=== PATIENT | female | born 1970 | race Caucasian/White ===

== ENCOUNTER → 2017-07-30 | Outpatient (CLI) | payer BC ==
[~2017-07-30] MED LIST: AMOX-291 PO; ETON1VAG INTUTE; LISI-170 PO; MV-M1TAB25 PO; ROSU20TA PO; TRAM50TA2 PO
[2017-07-30 11:10] LABS: BASOPHILS # (AUTO) 0.03 x10^3/uL (0-0.1); BASOPHILS % (AUTO) 0 % (0-1); EOSINOPHILS % (AUTO) 0 % (1-7); LYMPHOCYTES # (AUTO) 1.47 x10^3/uL (1-3.4); LYMPHOCYTES % (AUTO) 20 % (22-44); MD NO; MEAN CORPUSCULAR HEMOGLOBIN 31.3 pg (27.0-34.8); MEAN CORPUSCULAR HGB CONC 34.1 g/dL (32.4-35.8); MEAN CORPUSCULAR VOLUME 91.7 fL (80-100); MEAN PLATELET VOLUME 9.5 fL (7.4-10.4); MONOCYTES # (AUTO) 0.34 x10^3/uL (0.2-0.8); MONOCYTES % (AUTO) 5 % (2-9); NEUTROPHILS # (AUTO) 5.56 x10^3/uL (1.8-6.8); NEUTROPHILS % (AUTO) 75 % (42-75); PLATELET COUNT 255 x10^3/uL (130-400); RED BLOOD COUNT 4.78 x10^6/uL (3.82-5.3); RED CELL DISTRIBUTION WIDTH 12.4 % (9.6-15.2)
[2017-07-30 11:12] LABS: MICROSCOPIC NOT IND
[2017-07-30 11:14] LABS: INTERNATIONAL NORMALIZED RATIO 0.91 (0.93-1.1); PROTHROMBIN TIME 9.4 Seconds (9.6-11.5)
[2017-07-30 11:15] LABS: HCT (SEDRATE) 43.8 % (34.6-47.8)
[2017-07-30 11:19] LABS: ALBUMIN 3.4 g/dL (3.4-5.0); ANION GAP 6 mmol/L (5-15); CALCIUM 8.5 mg/dL (8.5-10.1); CHLORIDE 107 mmol/L (98-107)
[2017-07-30 11:22] LABS: ALANINE AMINOTRANSFERASE 21 U/L (12-78); ALKALINE PHOSPHATASE 61 U/L (45-117); BILIRUBIN,TOTAL 0.4 mg/dL (0.2-1.0); CREATININE 0.78 mg/dL (0.55-1.02); TOTAL PROTEIN 7.4 g/dL (6.4-8.2)
== END | disposition home or self-care (01) ==
LOC: STAR 09:59
PROVIDERS: ATTEND Orthopaedic Surgery Orthopaedic Surgery of the Spine
DX: Z01.818 Encounter for other preprocedural examination (principal); M25.552 Pain in left hip
CPT/HCPCS: 36415; 71046; 80053; 81003; 85025; 85610; 85651; 85730; 93005

== ENCOUNTER 2017-08-20 06:08 | Inpatient (IN) | payer BC ==
[~2017-08-20] VITALS: Ht 160 cm; Wt 72.7 kg
[2017-08-20] MEDS ORDERED: BUPIVACAINE/PF 0.5% ONE ×2 (06:44→11:11)
[2017-08-20] MEDS ORDERED: TRANEXAMIC ACID 100 MG/ML, 10ML ONE (06:44)
[2017-08-20] MEDS ORDERED: THROMBIN 20,000 UNIT VIAL TP ONE ×3 (06:45→09:20)
[2017-08-20] MEDS ORDERED: VANCOMYCIN PER PHARMACY MC ONE (06:45)
[2017-08-20] MEDS ORDERED: VANCOMYCIN 1,000 MG ONE (06:45)
[2017-08-20] MEDS ORDERED: EPINEPHRINE 1 MG/ML, 1ML ONE (06:45)
[2017-08-20] MEDS ORDERED: LACTATED RINGERS 1,000 ML IV SCH (06:53)
[2017-08-20] MEDS ORDERED: VANCOMYCIN PMX 1GM/200ML 200 ML IV ONE (07:00)
[2017-08-20 07:27] LABS: HCG UR SG 1.026 (1.003-1.030)
[2017-08-20] MEDS ORDERED: CEFAZOLIN PMX 1GM/50ML 0 ML ONE (07:32)
[2017-08-20] MEDS ORDERED: FENTANYL PF 250 MCG/5ML ONE ×2 (07:36)
[2017-08-20] MEDS ORDERED: MIDAZOLAM 1 MG/ML, 2ML ONE ×2 (07:36)
[2017-08-20] MEDS ORDERED: SCOPOLAMINE PATCH, 1.5MG PATCH.TD72 TD ONE ×2 (07:40→08:00)
[2017-08-20] MEDS ORDERED: DEXAMETHASONE 4 MG/ML, 1ML ONE (07:43)
[2017-08-20] MEDS ORDERED: CEFAZOLIN 1,000 MG ONE ×2 (07:43→07:54)
[2017-08-20] MEDS ORDERED: ROCURONIUM 10 MG/ML,10ML ONE (07:43)
[2017-08-20] MEDS ORDERED: PROPOFOL 10 MG/ML, 20ML ONE (07:43)
[2017-08-20] MEDS ORDERED: PHENYLEPHRINE 10 MG/ML ONE (07:54)
[2017-08-20] MEDS ORDERED: NEOSTIGMINE 1 MG/ML, 10ML ONE (07:54)
[2017-08-20] MEDS ORDERED: ONDANSETRON 2MG/ML, 2ML ONE (07:54)
[2017-08-20] MEDS ORDERED: GLYCOPYRROLATE 0.2MG/1ML, 5ML ONE (07:54)
[2017-08-20] MEDS ORDERED: CEFAZOLIN PMX 1GM/50ML 50 ML IV ONE (08:00)
[2017-08-20] MEDS ORDERED: HYDROmorphone 2 MG/ML, 1ML ONE ×2 (08:06→13:02)
[2017-08-20] MEDS ORDERED: PROMETHAZINE 25 MG/ML, 1ML IV PRN (08:30)
[2017-08-20] MEDS ORDERED: ALBUTEROL SULFATE 2.5 MG/3 ML NPPB PRN (08:30)
[2017-08-20] MEDS ORDERED: OXYcodone 5 MG/5 ML ORAL.SOL UDC PO PRN (08:30)
[2017-08-20] MEDS ORDERED: MEPERIDINE/PF 25MG/0.5ML IVPush PRN (08:30)
[2017-08-20] MEDS ORDERED: DIAZEPAM 5 MG/ML, 2ML IVPush PRN (08:30)
[2017-08-20] MEDS ORDERED: hydrALAzine 20 MG/ML, 1ML IV PRN (08:30)
[2017-08-20] MEDS ORDERED: EPHEDRINE 50 MG/ML, 1ML IVPush PRN (08:30)
[2017-08-20] MEDS ORDERED: ONDANSETRON 2MG/ML, 2ML IVPush PRN ×2 (08:30→14:00)
[2017-08-20] MEDS ORDERED: ACETAMINOPHEN 325 MG TABLET PO PRN (08:30)
[2017-08-20] MEDS ORDERED: LABETALOL 5MG/ML, 20ML IV PRN (08:30)
[2017-08-20] MEDS ORDERED: METOPROLOL 1 MG/ML, 5ML IV PRN (08:30)
[2017-08-20] MEDS ORDERED: VANCOMYCIN 1,000 MG IM ONE (11:42)
[2017-08-20 12:28] LABS: MEAN CORPUSCULAR HEMOGLOBIN 32.2 pg (27.0-34.8); MEAN CORPUSCULAR HGB CONC 34.2 g/dL (32.4-35.8); MEAN CORPUSCULAR VOLUME 94.2 fL (80-100); MEAN PLATELET VOLUME 8.9 fL (7.4-10.4); PLATELET COUNT 165 x10^3/uL (130-400); RED BLOOD COUNT 4.08 x10^6/uL (3.82-5.3); RED CELL DISTRIBUTION WIDTH 13.5 % (9.6-15.2)
[2017-08-20] MEDS ORDERED: FENTANYL PF 100 MCG/2ML ONE (12:34)
[2017-08-20] MEDS ORDERED: ACETAMINOPHEN 650 MG/20.3 ML UDC ONE (12:34)
[2017-08-20] MEDS ORDERED: OXYcodone 5 MG/5 ML ORAL.SOL UDC ONE (12:35)
[2017-08-20] MEDS: FENTANYL PF 100 MCG/2ML IV PRN ×2 (12:41→12:53)
[2017-08-20] MEDS: HYDROmorphone 1 MG/ML, 1ML IV PRN ×3 (13:04→13:16)
[2017-08-20 13:24] LABS: BASOPHILS % (AUTO) 0 % (0-1); EOSINOPHILS % (AUTO) 0 % (1-7); LYMPHOCYTES % (AUTO) 4 % (22-44); MD SCAN; MONOCYTES # (AUTO) 0.26 x10^3/uL (0.2-0.8); MONOCYTES % (AUTO) 1 % (2-9); NEUTROPHILS # (AUTO) 18.87 x10^3/uL (1.8-6.8); NEUTROPHILS % (AUTO) 95 % (42-75)
[2017-08-20 13:45] VITALS: BP 118/87
[2017-08-20] MEDS ORDERED: LORazepam 2 MG/ML, 1ML IV PRN (14:00)
[2017-08-20] MEDS ORDERED: DIPHENHYDRAMINE 25 MG CAPSULE PO PRN (14:00)
[2017-08-20] MEDS: LABETALOL 5MG/ML, 20ML IVPush SCH ×2 (14:00→22:00)
[2017-08-20] MEDS ORDERED: ALUMINUM/MAG/SIMETHICONE 30 ML UDC PO PRN (14:00)
[2017-08-20] MEDS ORDERED: ACETAMINOPHEN 500 MG TABLET PO PRN (14:00)
[2017-08-20] MEDS ORDERED: LORazepam 1MG TABLET PO PRN (14:00)
[2017-08-20] MEDS: SCOPOLAMINE PATCH, 1.5MG PATCH.TD72 TD SCH (14:00)
[2017-08-20] MEDS ORDERED: PROMETHAZINE 25 MG/ML, 1ML IM PRN (14:00)
[2017-08-20] MEDS ORDERED: ZOLPIDEM 5MG TABLET PO PRN (14:00)
[2017-08-20] MEDS ORDERED: BISACODYL 10 MG SUPP PR PRN (14:00)
[2017-08-20] MEDS ORDERED: PROMETHAZINE 25 MG SUPP PR PRN (14:00)
[2017-08-20] MEDS ORDERED: SODIUM CHLORIDE 0.9% 1,000 ML IV PRN (14:30)
[2017-08-20] MEDS: morphine SULFATE 10 MG/ML, 1ML IV PRN ×2 (15:25→21:58)
[2017-08-20] MEDS: POTASSIUM CHLORIDE 20 MEQ in D5%-0.45% NACL 1,000 ML IV SCH ×2 (16:50→21:28)
[2017-08-20] MEDS: CEFAZOLIN PMX 1GM/50ML 50 ML IVPB SCH ×2 (16:51→23:52)
[2017-08-20] MEDS: OXYcodone IR 5MG TABLET PO PRN (16:55)
[2017-08-20] MEDS: ONDANSETRON ODT 4 MG PO PRN (18:48)
[2017-08-20] MEDS: DIAZEPAM 5 MG TABLET PO PRN (18:49)
[2017-08-20 18:52] VITALS: BP 125/83
[2017-08-20] MEDS: ASPIRIN 325 MG TABLET EC PO SCH (20:00)
[2017-08-20] MEDS: DOCUSATE 100 MG CAPSULE PO SCH (21:00)
[2017-08-20] MEDS: SODIUM CHLORIDE FLUSH 10ML SYR IVF SCH (21:00)
[2017-08-20] MEDS ORDERED: TEMPLATE NON-FORMULARY MED. (CRESTOR 20 MG) PO SCH (21:00)
[2017-08-20 23:54] VITALS: BP 136/65
[2017-08-21] MEDS: OXYcodone IR 5MG TABLET PO PRN ×6 (00:46→21:31)
[2017-08-21 04:53] VITALS: BP 135/83
[2017-08-21] MEDS: LABETALOL 5MG/ML, 20ML IVPush SCH ×2 (06:00→14:00)
[2017-08-21] MEDS: DOCUSATE 100 MG CAPSULE PO SCH ×2 (07:56→20:54)
[2017-08-21] MEDS: ASPIRIN 325 MG TABLET EC PO SCH ×2 (07:56→20:54)
[2017-08-21] MEDS: SODIUM CHLORIDE FLUSH 10ML SYR IVF SCH ×2 (07:57→21:04)
[2017-08-21] MEDS: LISINOPRIL 20 MG TABLET PO SCH (07:57)
[2017-08-21] MEDS: KETOROLAC 30 MG/1 ML IV PRN (07:57)
[2017-08-21 08:34] VITALS: BP 141/84
[2017-08-21 09:16] LABS: BASOPHILS # (AUTO) 0.04 x10^3/uL (0-0.1); BASOPHILS % (AUTO) 0 % (0-1); EOSINOPHILS % (AUTO) 0 % (1-7); LYMPHOCYTES # (AUTO) 1.58 x10^3/uL (1-3.4); LYMPHOCYTES % (AUTO) 12 % (22-44); MD NO; MEAN CORPUSCULAR HEMOGLOBIN 31.8 pg (27.0-34.8); MEAN CORPUSCULAR HGB CONC 34.2 g/dL (32.4-35.8); MEAN CORPUSCULAR VOLUME 92.9 fL (80-100); MEAN PLATELET VOLUME 9.1 fL (7.4-10.4); MONOCYTES # (AUTO) 1.51 x10^3/uL (0.2-0.8); MONOCYTES % (AUTO) 11 % (2-9); NEUTROPHILS # (AUTO) 10.22 x10^3/uL (1.8-6.8); NEUTROPHILS % (AUTO) 77 % (42-75); PLATELET COUNT 123 x10^3/uL (130-400); RED BLOOD COUNT 3.45 x10^6/uL (3.82-5.3); RED CELL DISTRIBUTION WIDTH 13.7 % (9.6-15.2)
[2017-08-21] MEDS: POTASSIUM CHLORIDE 20 MEQ in D5%-0.45% NACL 1,000 ML IV SCH ×2 (10:12→20:18)
[2017-08-21 13:00] VITALS: BP 114/65
[2017-08-21] MEDS ORDERED: LABETALOL 5MG/ML, 20ML IVPush PRN (15:30)
[2017-08-21 19:49] VITALS: BP 104/63
[2017-08-22 00:03] VITALS: BP 154/84
[2017-08-22] MEDS: OXYcodone IR 5MG TABLET PO PRN ×6 (00:36→20:50)
[2017-08-22] MEDS: POTASSIUM CHLORIDE 20 MEQ in D5%-0.45% NACL 1,000 ML IV SCH ×2 (06:24→15:11)
[2017-08-22 07:40] VITALS: BP 117/75
[2017-08-22] MEDS: ASPIRIN 325 MG TABLET EC PO SCH ×2 (08:01→20:51)
[2017-08-22] MEDS: DOCUSATE 100 MG CAPSULE PO SCH ×2 (08:01→20:51)
[2017-08-22] MEDS: SODIUM CHLORIDE FLUSH 10ML SYR IVF SCH ×2 (08:02→20:52)
[2017-08-22] MEDS: LISINOPRIL 20 MG TABLET PO SCH (08:02)
[2017-08-22 09:31] LABS: BASOPHILS # (AUTO) 0.04 x10^3/uL (0-0.1); BASOPHILS % (AUTO) 0 % (0-1); EOSINOPHILS % (AUTO) 0 % (1-7); LYMPHOCYTES # (AUTO) 2.34 x10^3/uL (1-3.4); LYMPHOCYTES % (AUTO) 18 % (22-44); MD NO; MEAN CORPUSCULAR HEMOGLOBIN 31.8 pg (27.0-34.8); MEAN CORPUSCULAR HGB CONC 34.6 g/dL (32.4-35.8); MEAN CORPUSCULAR VOLUME 91.9 fL (80-100); MEAN PLATELET VOLUME 9.7 fL (7.4-10.4); MONOCYTES # (AUTO) 1.44 x10^3/uL (0.2-0.8); MONOCYTES % (AUTO) 11 % (2-9); NEUTROPHILS # (AUTO) 9.42 x10^3/uL (1.8-6.8); NEUTROPHILS % (AUTO) 71 % (42-75); PLATELET COUNT 129 x10^3/uL (130-400); RED BLOOD COUNT 3.04 x10^6/uL (3.82-5.3); RED CELL DISTRIBUTION WIDTH 13.8 % (9.6-15.2)
[2017-08-22] MEDS: SENNA/DOCUSATE TABLET PO PRN (12:08)
[2017-08-22 13:08] VITALS: BP 93/60
[2017-08-22 19:25] VITALS: BP 97/61
[2017-08-22] MEDS: CRESTOR 20 MG HOMEMEDPO SCH (20:52)
[2017-08-22] MEDS: KETOROLAC 30 MG/1 ML IV PRN (22:36)
[2017-08-23] MEDS: OXYcodone IR 5MG TABLET PO PRN ×7 (00:48→23:49)
[2017-08-23 01:57] VITALS: BP 110/61
[2017-08-23] MEDS: POTASSIUM CHLORIDE 20 MEQ in D5%-0.45% NACL 1,000 ML IV SCH ×3 (02:36→22:48)
[2017-08-23] MEDS: KETOROLAC 30 MG/1 ML IV PRN (06:50)
[2017-08-23 07:16] VITALS: BP 101/65
[2017-08-23 08:57] LABS: BASOPHILS # (AUTO) 0.04 x10^3/uL (0-0.1); BASOPHILS % (AUTO) 0 % (0-1); EOSINOPHILS # (AUTO) 0.01 x10^3/uL (0-0.4); EOSINOPHILS % (AUTO) 0 % (1-7); LYMPHOCYTES % (AUTO) 15 % (22-44); MD NO; MEAN CORPUSCULAR HEMOGLOBIN 32.1 pg (27.0-34.8); MEAN CORPUSCULAR HGB CONC 34.4 g/dL (32.4-35.8); MEAN CORPUSCULAR VOLUME 93.2 fL (80-100); MEAN PLATELET VOLUME 9.2 fL (7.4-10.4); MONOCYTES # (AUTO) 1.07 x10^3/uL (0.2-0.8); MONOCYTES % (AUTO) 9 % (2-9); NEUTROPHILS # (AUTO) 8.47 x10^3/uL (1.8-6.8); NEUTROPHILS % (AUTO) 75 % (42-75); PLATELET COUNT 128 x10^3/uL (130-400); RED BLOOD COUNT 2.79 x10^6/uL (3.82-5.3)
[2017-08-23] MEDS: DOCUSATE 100 MG CAPSULE PO SCH ×2 (09:09→20:02)
[2017-08-23] MEDS: ASPIRIN 325 MG TABLET EC PO SCH ×2 (09:09→20:02)
[2017-08-23] MEDS: SODIUM CHLORIDE FLUSH 10ML SYR IVF SCH ×2 (09:09→20:02)
[2017-08-23] MEDS: ONDANSETRON ODT 4 MG PO PRN (10:28)
[2017-08-23] MEDS: MAGNESIUM HYDROXIDE 8%, 30ML UDC PO PRN (11:46)
[2017-08-23 12:25] VITALS: BP 109/69
[2017-08-23] MEDS: SENNA/DOCUSATE TABLET PO PRN (13:41)
[2017-08-23] MEDS: SCOPOLAMINE PATCH, 1.5MG PATCH.TD72 TD SCH (14:00)
[2017-08-23] MEDS: DEXAMETHASONE 6 MG in SODIUM CHLORIDE 0.9% 50 ML IV PRN (14:50)
[2017-08-23 19:40] VITALS: BP 131/72
[2017-08-23] MEDS: LISINOPRIL 20 MG TABLET PO SCH (20:02)
[2017-08-23] MEDS: CRESTOR 20 MG HOMEMEDPO SCH (20:02)
[2017-08-24 02:04] VITALS: BP 96/62
[2017-08-24] MEDS: OXYcodone IR 5MG TABLET PO PRN ×5 (04:06→23:48)
[2017-08-24 07:03] VITALS: BP 109/71
[2017-08-24] MEDS: DOCUSATE 100 MG CAPSULE PO SCH ×2 (08:31→20:54)
[2017-08-24] MEDS: ASPIRIN 325 MG TABLET EC PO SCH ×2 (08:31→19:35)
[2017-08-24] MEDS: POTASSIUM CHLORIDE 20 MEQ in D5%-0.45% NACL 1,000 ML IV SCH ×2 (08:54→18:58)
[2017-08-24] MEDS: SODIUM CHLORIDE FLUSH 10ML SYR IVF SCH ×2 (09:10→23:48)
[2017-08-24] MEDS: DEXAMETHASONE 6 MG in SODIUM CHLORIDE 0.9% 50 ML IV PRN (09:37)
[2017-08-24 10:41] LABS: BASOPHILS # (AUTO) 0.03 x10^3/uL (0-0.1); BASOPHILS % (AUTO) 0 % (0-1); EOSINOPHILS % (AUTO) 0 % (1-7); LYMPHOCYTES # (AUTO) 2.09 x10^3/uL (1-3.4); LYMPHOCYTES % (AUTO) 17 % (22-44); MD SCAN; MEAN CORPUSCULAR HEMOGLOBIN 31.9 pg (27.0-34.8); MEAN CORPUSCULAR HGB CONC 34.2 g/dL (32.4-35.8); MEAN CORPUSCULAR VOLUME 93.3 fL (80-100); MONOCYTES # (AUTO) 0.85 x10^3/uL (0.2-0.8); MONOCYTES % (AUTO) 7 % (2-9); NEUTROPHILS # (AUTO) 9.64 x10^3/uL (1.8-6.8); NEUTROPHILS % (AUTO) 77 % (42-75); PLATELET COUNT 205 x10^3/uL (130-400); RED BLOOD COUNT 2.82 x10^6/uL (3.82-5.3)
[2017-08-24 12:21] VITALS: BP 133/73
[2017-08-24] MEDS: DIAZEPAM 5 MG TABLET PO PRN ×2 (14:57→20:55)
[2017-08-24 19:50] VITALS: BP 121/75
[2017-08-24] MEDS ORDERED: CEPH-368 PO (20:45)
[2017-08-24] MEDS ORDERED: DIAZ5TAB4 PO (20:45)
[2017-08-24] MEDS ORDERED: ASPI-650 PO (20:45)
[2017-08-24] MEDS ORDERED: OXYC20TA2 PO (20:45)
[2017-08-24] MEDS: MAGNESIUM HYDROXIDE 8%, 30ML UDC PO PRN (20:54)
[2017-08-24] MEDS: LISINOPRIL 20 MG TABLET PO SCH (20:54)
[2017-08-24] MEDS: CRESTOR 20 MG HOMEMEDPO SCH (21:00)
[2017-08-25 03:29] VITALS: BP 122/75
[2017-08-25] MEDS: DIAZEPAM 5 MG TABLET PO PRN (04:03)
[2017-08-25] MEDS: OXYcodone IR 5MG TABLET PO PRN ×2 (04:04→08:46)
[2017-08-25] MEDS: POTASSIUM CHLORIDE 20 MEQ in D5%-0.45% NACL 1,000 ML IV SCH (04:58)
[2017-08-25 06:45] VITALS: BP 135/81
[2017-08-25] MEDS: DOCUSATE 100 MG CAPSULE PO SCH (08:46)
[2017-08-25] MEDS: SODIUM CHLORIDE FLUSH 10ML SYR IVF SCH (08:46)
[2017-08-25] MEDS: ASPIRIN 325 MG TABLET EC PO SCH (08:46)
[2017-08-25 09:39] LABS: BASOPHILS # (AUTO) 0.03 x10^3/uL (0-0.1); BASOPHILS % (AUTO) 0 % (0-1); EOSINOPHILS # (AUTO) 0.02 x10^3/uL (0-0.4); EOSINOPHILS % (AUTO) 0 % (1-7); LYMPHOCYTES # (AUTO) 2.25 x10^3/uL (1-3.4); LYMPHOCYTES % (AUTO) 21 % (22-44); MD NO; MEAN CORPUSCULAR HEMOGLOBIN 31.8 pg (27.0-34.8); MEAN CORPUSCULAR HGB CONC 33.6 g/dL (32.4-35.8); MEAN CORPUSCULAR VOLUME 94.7 fL (80-100); MEAN PLATELET VOLUME 8.5 fL (7.4-10.4); MONOCYTES # (AUTO) 0.93 x10^3/uL (0.2-0.8); MONOCYTES % (AUTO) 9 % (2-9); NEUTROPHILS # (AUTO) 7.58 x10^3/uL (1.8-6.8); NEUTROPHILS % (AUTO) 70 % (42-75); PLATELET COUNT 258 x10^3/uL (130-400); RED BLOOD COUNT 2.99 x10^6/uL (3.82-5.3); RED CELL DISTRIBUTION WIDTH 13.4 % (9.6-15.2)
[2017-08-25 09:56] VITALS: BP 122/73
== END 2017-08-25 10:36 | disposition home or self-care (01) | DRG 470 ==
LOC: ORIP 06:08 → 4NOR 13:38 → DCLOUNGE 08-25 10:12
PROVIDERS: ADMIT Orthopaedic Surgery Orthopaedic Surgery of the Spine; ATTEND Orthopaedic Surgery Orthopaedic Surgery of the Spine
PROC: 0QB70ZZ Excision of Left Upper Femur, Open Approach (ICD-10-PCS; 2017-08-20)
PROC: 0QS704Z Reposition Left Upper Femur with Internal Fixation Device, Open Approach (ICD-10-PCS; 2017-08-20)
PROC: 30233K1 Transfusion of Nonautologous Frozen Plasma into Peripheral Vein, Percutaneous Approach (ICD-10-PCS; 2017-08-20)
PROC: 30233N1 Transfusion of Nonautologous Red Blood Cells into Peripheral Vein, Percutaneous Approach (ICD-10-PCS; 2017-08-20)
PROC: 0SRB02Z Replacement of Left Hip Joint with Metal on Polyethylene Synthetic Substitute, Open Approach (ICD-10-PCS; principal; 2017-08-20 08:00)
DX: M16.12 Unilateral primary osteoarthritis, left hip (principal); E78.00 Pure hypercholesterolemia, unspecified; Q65.89 Other specified congenital deformities of hip; I10 Essential (primary) hypertension; Q65.02 Congenital dislocation of left hip, unilateral
CPT/HCPCS: 36415; 72170; 81025; 82330; 82803; 82947; 84132; 84295; 85014; 85025; 86850; 86900; 86923; C1713; J0171; J0690; J1100; J1170; J1885; J2250; J2405; J2704; J2710; J3010; J3370; J3480; J3490; Q0162; C1760; C1776; J2270; J2370; J7030; J7120; P9016; P9017